=== PATIENT | female | born 1990 | race Two or more races ===

== ENCOUNTER 2018-11-23 16:58 | Emergency (ER) | payer OTHER ==
[~2018-11-23] VITALS: Ht 154.9 cm; Wt 109.0 kg
[2018-11-23 17:09] VITALS: BP 110/80
--- NOTE | 2018-11-23 17:35 | NUR ---
PT TAKEN TO RAD
== END 2018-11-23 18:04 | disposition home or self-care (01) ==
LOC: ED 18:00
DX: S20.211A Contusion of right front wall of thorax, initial encounter (principal); V50.5XXA Driver of pick-up truck or van injured in collision with pedestrian or animal in traffic accident, initial encounter; Y93.89 Activity, other specified; Y92.89 Other specified places as the place of occurrence of the external cause; Y99.8 Other external cause status
CPT/HCPCS: 71046; 99283